=== PATIENT | male | born 1960 | race Caucasian/White ===

== ENCOUNTER 2017-03-21 13:43 | Emergency (ER) | payer SELFPAY ==
[~2017-03-21] VITALS: Ht 177.8 cm; Wt 81.6 kg
[2017-03-21 13:43] VITALS: BP 123/89
[2017-03-21] MEDS ORDERED: CEPHALEXIN MONOHYDRATE 500 MG CAPSULE PO STA (14:17)
[2017-03-21] MEDS ORDERED: CEFTRIAXONE 1 G VIAL IM STA (14:17)
[2017-03-21] MEDS ORDERED: HYDROCODONE/APAP 5/325MG 1 EACH TABLET PO STA (14:17)
[2017-03-21] MEDS ORDERED: SULFAMETH/TRIMETH 800/160 MG 1 UDTAB TABLET PO STA (14:17)
[2017-03-21] MEDS ORDERED: CEPHALEXIN MONOHYDRATE 500 MG CAPSULE PO ONE (15:01)
[2017-03-21] MEDS ORDERED: SULFAMETH/TRIMETH 800/160 MG 1 UDTAB TABLET PO ONE (15:01)
[2017-03-21] MEDS ORDERED: HYDROCODONE/APAP 5/325MG 1 EACH TABLET ONE (15:01)
== END 2017-03-21 15:15 | disposition home or self-care (01) ==
LOC: ER 13:45
DX: L03.115 Cellulitis of right lower limb (principal)
CPT/HCPCS: 99284; A4606; Z7610

== ENCOUNTER 2017-03-23 18:18 | Inpatient (IN) | payer MEDICAID ==
[~2017-03-23] VITALS: Ht 167.6 cm; Wt 73.5 kg
--- NOTE | 2017-03-23 18:40 | NUR ---
AAOX3, CAME TO ER C/O UNHEALING WOUND TO R KNEE, R FOOT SWELLING, AND REDNESS ON R INNER THIGH, HOT TO TOUCH. RR IS EVEN AND UNLABORED WITH NAD NOTED. SKIN IS WARM AND DRY. DR VENTURA AND MAC PA AT BS FOR EVAL.
[2017-03-23] MEDS ORDERED: VANCOMYCIN 1 GM in IV D5W 250 ML IV ONE (19:00)
[2017-03-23] MEDS ORDERED: LIDOCAINE 1% INJ 50 ML MDV IJ ONE (19:00)
[2017-03-23] MEDS ORDERED: PIPERACILLIN /TAZOBACTAM 3.375 G in IV D5W 50 ML IV ONE (19:00)
[2017-03-23 19:01] LABS: BASOPHILS # (AUTO) 0.3 /CMM (0.0-0.2); BASOPHILS % (AUTO) 3.3 % (0.0-2.0); EOSINOPHILS # (AUTO) 0.2 /CMM (0.0-0.7); EOSINOPHILS % (AUTO) 3.1 % (0.0-6.0); HEMATOCRIT 44 % (39-51); HEMOGLOBIN 14.5 g/dL (13.5-17.5); LYMPHOCYTES # (AUTO) 1.8 /CMM (0.8-4.8); LYMPHOCYTES % (AUTO) 22.7 % (20.0-44.0); MEAN CORPUSCULAR HEMOGLOBIN 31 PG (26.0-33.0); MEAN CORPUSCULAR HGB CONC 33 g/dl (31.0-36.0); MEAN CORPUSCULAR VOLUME 96 fL (80-96); MONOCYTES # (AUTO) 1.2 /CMM (0.1-1.30); MONOCYTES % (AUTO) 15.2 % (2.0-12.0); NEUTROPHILS # (AUTO) 4.5 /CMM (1.8-8.9); NEUTROPHILS % (AUTO) 55.7 % (43.0-81.0); PLATELET COUNT (AUTO) 357 /CMM (150-450); RDW COEFFICIENT OF VARIATION 12.5 (11.5-15.0); RED BLOOD CELL COUNT(AUTO) 4.61 MIL/uL (4.5-6.0)
[2017-03-23 19:11] LABS: CALCIUM, SERUM 8.6 mg/dL (8.5-10.1); CARBON DIOXIDE 28 mmol/L (21-32); CHLORIDE 104 mmol/L (98-107); GLUCOSE 113 mg/dL (74-106); POTASSIUM 3.7 mmol/L (3.5-5.1); SODIUM SERUM 138 mmol/L (136-145); UREA NITROGEN, BLOOD 18 mg/dL (7-18)
[2017-03-23 19:15] LABS: INR 0.96 (0.87-1.13)
[2017-03-23 19:17] LABS: ALANINE AMINOTRANSFERASE 28 U/L (12-78); ALBUMIN 2.9 g/dL (3.4-5.0); ALKALINE PHOSPHATASE 75 U/L (46-116); ASPARTATE AMINOTRANSFERASE 25 U/L (15-37); BILIRUBIN,TOTAL 0.1 mg/dL (0.2-1.0); TOTAL PROTEIN, SERUM 7.1 g/dL (6.4-8.2)
[2017-03-23 19:19] LABS: TROPONIN I < 0.017 ng/mL (0.00-0.056)
--- NOTE | 2017-03-23 19:20 | NUR ---
REPORT GIVEN TO RENE FAYE FOR KIYA.
--- NOTE | 2017-03-23 19:58 | NUR ---
VITAL SIGNS UPDATED.
[2017-03-23] MEDS ORDERED: TDAP [DIPH/PERTUSSIS/TET] 0.5 ML VIAL IM ONE ×2 (20:00→20:01)
--- NOTE | 2017-03-23 20:20 | NUR ---
patient transported to ms bed without incident
--- NOTE | 2017-03-23 20:30 | NUR ---
MS RN NOTES MESERET VINCENT. AT BEDSIDE
[2017-03-23 20:35] VITALS: BP 115/72
[2017-03-23 21:00] LABS: EOSINOPHILS % (MANUAL) 4 % (0-4); LYMPHOCYTES % (MANUAL) 28 % (16-48); MONOCYTES % (MANUAL) 10 % (0-11.0); NEUTROPHILS % (MANUAL) 58 (42-76)
[2017-03-23] MEDS ORDERED: ONDANSETRON HCL/PF 4 MG/2 ML VIAL IVP PRN (21:00)
[2017-03-23] MEDS ORDERED: Z GUARD REMEDY 2 OZ OINT TP PRN (21:00)
[2017-03-23] MEDS ORDERED: ACETAMINOPHEN 325 MG TABLET PO PRN (21:00)
[2017-03-23] MEDS ORDERED: MAG HYDROX/AL HYDROX/SIMETH 30 ML UDC PO PRN (21:00)
[2017-03-23] MEDS ORDERED: HYDROCODONE/APAP 5/325MG 1 EACH TABLET PO PRN (21:00)
[2017-03-23] MEDS ORDERED: MAGNESIUM HYDROXIDE 30 ML UDC PO PRN (21:00)
--- NOTE | 2017-03-23 21:00 | NUR ---
MS RN ADMITTING OPENING NOTES RECEIVE PT VIA W/C FROM E.R AT 2021, A/OX 3, HEAD TO TOE ASSESSMENT IS DONE, PT SMELLS ALCOHOL WHEN HE TALKS, PER PT HE DRINK A LITTLE ALCOHOL. NO S/S OF RESPIRATORY DISTRESS OR SOB. SAFETY MEASURES IN PLACE, ON LOW BED TO ENSURE SAFETY. CALL LIGHT WITHIN REACH. WILL CONTINUE TO MONITOR
[2017-03-23] MEDS ORDERED: PIPERACILLIN /TAZOBACTAM 3.375 G VIAL IV ONE (23:52)
[2017-03-24] MEDS: IV NS 0.9% 1,000 ML IV PRN ×2 (00:02→23:36)
[2017-03-24] MEDS: PIPERACILLIN /TAZOBACTAM 3.375 G in IV D5W 50 ML IV SCH ×5 (00:02→23:35)
[2017-03-24] MEDS ORDERED: VANCOMYCIN 1 GM VIAL ONE (04:18)
[2017-03-24] MEDS ORDERED: PIPERACILLIN /TAZOBACTAM 3.375 G VIAL IV ONE (04:18)
[2017-03-24] MEDS: VANCOMYCIN 1 GM in IV D5W 250 ML IV SCH ×2 (05:04→17:40)
--- NOTE | 2017-03-24 06:43 | NUR ---
MS RN CLOSING NOTES PT ASLEEP AND EASILY AWAKEN, A/O X3, HOB, TOLERATING ROOM AIR 100%. NS RUNNING AT 75CC/HR, ON ATB WITH NO A/R NOTED, IV SITE NO S/S OF INFILTRATED PATENT AND FLUSHED, NO S/S OF RESPIRATORY DISTRESS IN STABLE CONDITION. NO SOB, SKIN WARM AND DRY TO TOUCH, AFEBRILE, NEEDS ATTENDED AND ANTICIPATED. NURSING CARE RENDERED. KEPT CLEAN AND DRY AND COMFORTABLE, GOOD SKIN CARE PROVIDED. FREQUENT VISUAL CHECK DONE FOR SAFETY EVERY 2 HOURS. SAFE HAZARD FREE ENVIRONMENT PROVIDED. CALL LIGHT WITHIN EASY TO REACH, ON LOW BED AT ALL TIMES TO ENSURE SAFETY, WILL ENDORSE TO THE NEXT SHIFT CONTINUE PLAN OF CARE.
--- NOTE | 2017-03-24 07:40 | NUR ---
RN OPEN NOTES RECEIVED REPORT FROM LIBRARY PAGE NURSE. WILL CONTINUE TO ASSESS AND MONITOR PATIENT THROUGH OUT MY SHIFT
[2017-03-24 07:50] LABS: BASOPHILS % (AUTO) 0.5 % (0.0-2.0); EOSINOPHILS # (AUTO) 0.3 /CMM (0.0-0.7); EOSINOPHILS % (AUTO) 4.2 % (0.0-6.0); HEMATOCRIT 45 % (39-51); HEMOGLOBIN 14.9 g/dL (13.5-17.5); LYMPHOCYTES # (AUTO) 1.9 /CMM (0.8-4.8); MEAN CORPUSCULAR HEMOGLOBIN 32 PG (26.0-33.0); MEAN CORPUSCULAR HGB CONC 33 g/dl (31.0-36.0); MEAN CORPUSCULAR VOLUME 96 fL (80-96); MONOCYTES # (AUTO) 0.8 /CMM (0.1-1.30); MONOCYTES % (AUTO) 12.2 % (2.0-12.0); NEUTROPHILS # (AUTO) 3.8 /CMM (1.8-8.9); NEUTROPHILS % (AUTO) 55.1 % (43.0-81.0); PLATELET COUNT (AUTO) 351 /CMM (150-450); RDW COEFFICIENT OF VARIATION 13.3 (11.5-15.0); RED BLOOD CELL COUNT(AUTO) 4.67 MIL/uL (4.5-6.0); WHITE BLOOD COUNT (AUTO) 6.8 K/uL (4.3-11.0)
[2017-03-24 08:00] VITALS: BP 128/76
[2017-03-24 08:03] LABS: CALCIUM, SERUM 8.6 mg/dL (8.5-10.1); CREATININE 1.1 mg/dL (0.6-1.3); MAGNESIUM 1.8 mg/dL (1.8-2.4); PHOSPHORUS 2.6 mg/dL (2.5-4.9)
[2017-03-24 08:12] LABS: THYROID STIMULATING HORMONE 1.294 uIU/mL (0.358-3.74)
[2017-03-24] MEDS ORDERED: SULF1TAB48 PO (08:42)
[2017-03-24] MEDS ORDERED: CEPH-570 PO (08:42)
[2017-03-24] MEDS ORDERED: FEE PK DOSING 1 MIN EA MC ONE (10:42)
--- NOTE | 2017-03-24 13:07 | NUR ---
WOUND CARE CONSULT: PT PRESENTS WITH PURULENT DRAINAGE FROM RT KNEE ABSCESS WITH REDNESS TO SURROUNDING AREAS. RECOMMEND SURGICAL CONSULT. RECOMMENDATIONS MADE FOR WOUND CARE. DISCUSSED WITH [facility] STAFF. WILL SEE PRN. BELTRAN IN AGREEMENT WITH PLAN OF CARE. Addendum: 03/24/17 at 1309 by SHAYNE DIAZ WNDNU Amended: Links added.
--- NOTE | 2017-03-24 15:32 | NUR ---
Social service consult requested by HAIM Khan for possible homelessness. Pt. is a 56 year old male who was admitted to [facility] for cellulitis. PAGE met with pt. bedside. Pt. was cooperative with SW during the assessment, however not very forthcoming with information that was asked of him. SW inquired with pt. if he is homeless and pt. responded " yeah, you could say that". Pt. states he is currently living at a friend's but would not elaborate any further. Pt. is currently unemployed and stated he is waiting to receive his social security disability income. Pt. denies drinking alcohol and using drugs. Pt. occasionally smokes cigarettes. SW has no source of income. PAGE encouraged pt. to apply for general relief and food stamps. SW to offer pt. list of DPSS offices in [facility]. PAGE offered pt. homeless [facility] placement and resources, however pt. declined. PAGE gave HAIM Cedeño document with List of DPSS offices to give to pt's RENE Fierro to give to the patient. No other social service needs are requested at this time. PAGE is available if needed.
--- NOTE | 2017-03-24 15:54 | NUR ---
Per patient he is currently unemployed and homeless. He was seen by social services coordinator and stated that he is currently living at a friend's home but would not elaborate any further. Patient stated he is waiting to receive his social security disability income.PAGE encouraged pt. to apply for general relief and food stamps. SW to offer pt. list of DPSS offices in [facility]. PAGE offered patient homeless correction placement and resources, however patient declined. He is ambulatory and independent with adl's.He will go back to stay with his friend when discharge. Addendum: 03/24/17 at 1554 by MAGED GUTIERREZ RN Amended: Links added.
[2017-03-24 16:00] VITALS: BP 123/82
[2017-03-24] MEDS ORDERED: FLU VACC QS 2017-18(36MOS+)/PF 0.5 ML DISP.SYRIN IM ONE (16:00)
[2017-03-24] MEDS: LACTOBACILLUS RHAMNOSUS GG 1 EACH CAP.SPRINK PO SCH (17:02)
[2017-03-24] MEDS: HYDROCODONE/APAP 10/325MG 1 EA TABLET PO PRN (18:46)
--- NOTE | 2017-03-24 19:05 | NUR ---
RN CLOSING NOTES: PATIENT IN BED, ALERT AND ORIENTED TO NAME, PLACE AND TIME. BREATHING EVEN AND UNLABORED. NO SIGNS AND SYMPTOMS OF DISTRESS. RIGHT KNEE PAIN 8/10, NORCO ADMINISTERED AT 1840. IV SITE IS INTACT AND PATENT. ALL NURSING CARE PROVIDED FOR COMFORT AND SAFETY. BED IN LOWEST AND LOCKED POSITION, 2 SIDE-RAILS ARE UP, CALL LIGHT WITHIN REACH. PENDING DOPPLER LOWER EXTREMITY TO R/U DVT. WILL ENDORSE TO NITROCELLULOSE MAKER NURSE RN FOR KIYA.
--- NOTE | 2017-03-24 19:30 | NUR ---
MS RN NOTE RECEIVED PATIENT FROM DAY SHIFT, PATIENT IS ALERT AND ORIENTEDX3, RESTING IN BED COMFORTABLY, NO S/S OF RESPIRATORY DISTRESS AND NO PAIN REPORTED. IV ON LEFT AND RIGHT HAND ARE PATENT AND INTACT, FLUID IS RUNNING. SRX2, BED IN LOW POSITION, CALL LIGHT WITHIN REACH, WILL CONTINUE TO MONITOR PATIENT.
[2017-03-24 20:00] VITALS: BP 123/79
[2017-03-25] MEDS: HYDROCODONE/APAP 10/325MG 1 EA TABLET PO PRN ×2 (02:21→20:10)
--- NOTE | 2017-03-25 02:23 | NUR ---
MS RN NOTE PATIENT COMPLAINS OF RIGHT KNEE PAIN, 01/26. NORCO 10-325MG PO GIVEN. WILL MONITOR EFFECTIVENESS.
[2017-03-25] MEDS: PIPERACILLIN /TAZOBACTAM 3.375 G in IV D5W 50 ML IV SCH ×4 (05:26→23:45)
--- NOTE | 2017-03-25 07:00 | NUR ---
MS RN NOTE PATIENT IS RESTING IN BED COMFORTABLY, NO S/S OF RESPIRATORY DISTRESS OR PAIN AT THIS TIME. DRESSING CHANGE PERFORMED ON RIGHT KNEE PER PATIENT'S REQUEST. IV ON BOTH HANDS ARE PATENT AND INTACT. WILL ENDORSE TO DAY SHIFT NURSE FOR KIYA.
[2017-03-25 07:15] LABS: CALCIUM, SERUM 8.8 mg/dL (8.5-10.1); CREATININE 0.9 mg/dL (0.6-1.3); POTASSIUM 4.3 mmol/L (3.5-5.1)
--- NOTE | 2017-03-25 07:19 | NUR ---
MS RN NOTE PATIENT'S 0500 VANCO TROUGH RESULT IS STILL PENDING ULTIL NOW, UNABLE TO ADMINISTER 0600 VANCO 1GM IVP. WILL ENDORSE TO DAY SHIFT NURSE TO F/U.
--- NOTE | 2017-03-25 07:48 | NUR ---
MS RN NOTE RECEIVED PATIENT RESTING IN BED COMFORTABLY WITH NO APPARENT DISTRESS, NO S/S OF PAIN OR DISCOMFORT. BREATHING EVEN AND UNLABORED. DRESSING TO RIGHT KNEE CHANGED THIS MORNING. IV MOHSEN RIGHT AND LEFT HAND PATENT AND INTACT INFUSING NS AT 75CC/HR. SAFETY MEASURES RENDERED CALL LIGHT PLACED WITHIN REACH. WILL CONTINUE TO MONITOR
[2017-03-25] MEDS: VANCOMYCIN 1 GM in IV D5W 250 ML IV SCH ×3 (07:56→21:28)
[2017-03-25 08:00] VITALS: BP 137/85
[2017-03-25] MEDS: LACTOBACILLUS RHAMNOSUS GG 1 EACH CAP.SPRINK PO SCH ×2 (10:03→16:53)
--- NOTE | 2017-03-25 15:14 | NUR ---
MS/RN NOTES WOUND CARE OF RIGHT KNEE PERFORMED PER MD ORDERS
[2017-03-25 16:00] VITALS: BP 145/83
[2017-03-25] MEDS: IV NS 0.9% 1,000 ML IV PRN (18:29)
--- NOTE | 2017-03-25 18:59 | NUR ---
ms/rn notes patient resting in bed comfortably, in no apparent distress, all due medications given, all needs met and attended. patient kept clean and comfortable. wound care done as ordered. iv fluids infusing gently with empiric antibiotics (vanco, zosyn). patient eating well consuming 100perecent of meals. Ambulatory with steady gait safety measures rendered, call light within easy reach. will endorse can to restaurant shift leader for leora
--- NOTE | 2017-03-25 19:36 | NUR ---
RN NOTES RECEIVED PATIENT IN BED, ALERT AND ORIENTED X4, CALM, NO SOB, NO RESPIRATORY DISTRESS, TOLERATING ROOM AIR, TALKING ON THE PHONE, DENIES ANY PAIN AT THIS TIME, LUNG SOUNDS ARE CLEAR, ABDOMEN SOFT AND NON-TENDER, ACTIVE BOWEL SOUNDS, LEFT HAND PERIPHERAL LINE IS PATENT AND INFUSING WELL WITH NS AT 75 CC/HR, NEEDS ATTENDED CALL LIGHT WITHIN REACH.
[2017-03-25 20:00] VITALS: BP 145/86
[2017-03-26] MEDS: PIPERACILLIN /TAZOBACTAM 3.375 G in IV D5W 50 ML IV SCH ×3 (05:11→17:35)
[2017-03-26] MEDS: VANCOMYCIN 1 GM in IV D5W 250 ML IV SCH ×3 (05:58→22:29)
--- NOTE | 2017-03-26 06:42 | NUR ---
RN NOTES PATIENT IS RESTING COMFORTABLY, EASILY AROUSEABLE, NO SOB, NO RESPIRATORY DISTRESS, NO ADVERSE CHANGE OF CONDITION DURING SHIFT, COMPLIANT WITH MEDICATION. NEEDS ATTENDED, CALL LIGHT WITHIN REACH.
[2017-03-26 07:08] LABS: CALCIUM, SERUM 8.9 mg/dL (8.5-10.1); CREATININE 0.9 mg/dL (0.6-1.3)
--- NOTE | 2017-03-26 07:42 | NUR ---
RECEIVED PT A/OX4. ON ROOM AIR SATING AT 97%. NO DISTRESS NOTED. NO PAIN NOTED. AMBULATES WITH OUT ASSISTANCE. R KNEE ABSCESS NOTED. DRESSING INTACT. ON REGULAR DIET. R HAND #22 RUNNING NS AT 75ML/HR. L HAND #22 SL. SITE CLEAR AND PATENT. RESTING COMFORTABLY IN BED. CALL LIGHT WITHIN REACH.
[2017-03-26 08:00] VITALS: BP 136/96
[2017-03-26] MEDS: LACTOBACILLUS RHAMNOSUS GG 1 EACH CAP.SPRINK PO SCH ×2 (08:27→17:35)
[2017-03-26 09:00] VITALS: BP 136/96
--- NOTE | 2017-03-26 10:00 | NUR ---
WOUND CARE DONE ORDERED BY MD ON RIGHT KNEE. CLEANSED WITH NS AND COVERED WITH KERLIX.
[2017-03-26] MEDS: IV NS 0.9% 1,000 ML IV PRN (13:02)
[2017-03-26 16:00] VITALS: BP 126/89
--- NOTE | 2017-03-26 18:44 | NUR ---
IV ON RIGHT HAND #22 LEAKING. D/C IV AND CONTINUED IV INFUSION OF NS AT 75ML/HR ON L HAND. R HAND IV SITE CLEAR. NO REDNESS. NO BLEEDING. NO INFILTRATION NOTED.
--- NOTE | 2017-03-26 18:45 | NUR ---
MS RN: CLOSING NOTE PT A/PX4. AMBULATES WITH OUT ASSISTANCE. TOOK ALL MEDICATIONS ON TIME. NO ADVERSE REACTIONS NOTED. NO PAIN NOTED. NO SOB. NO DISTRESS NOTED. ON REGULAR DIET. R KNEE ABBESS WOUND SITE CLEANED AND DRESSING INTACT. D/C RIGHT HAND IV DUR TO LEAKING. SITE CLEAR, NO REDNESS, NO BLEEDING NOTED. CONTINUED IV NS AT 75ML ON L HAND. SITE CLEAR AND PATENT. NO N/V NOTED. RESTING COMFORTABLY IN BED. CALL LIGHT WITHIN REACH.
--- NOTE | 2017-03-26 19:25 | NUR ---
MS/RN NOTES RECEIVED PT. LYING IN BED. AWAKE, ALERT AND ORIENTED X3. BREATHING EVEN AND UNLABORED ON ROOM AIR. NO SOB, RESPIRATORY DISTRESS OR COMPLAINTS OF PAIN NOTED AT THIS TIME. PT. WITH LEFT HAND 22 GAUGE PERIPHERAL IV PRESENT, PATENT AND INTACT ADMINISTERING TO PT. NS @ 75 ML/HR. BED LOCKED AND IN LOWEST POSITION, SIDE RAILS UP X2, CALL LIGHT WITHIN REACH, WILL CONTINUE TO MONITOR.
[2017-03-26 20:29] VITALS: BP 142/85
--- NOTE | 2017-03-26 22:50 | NUR ---
MS/RN NOTES PT. LEFT HAND IV SITE INFILTRATED. DISCONNECTED IV FLUIDS. REMOVED LEFT HAND IV ACCESS AND ELEVATED PT. LEFT HAND ON PILLOW. PT. REFUSING IV INSERTION AT THIS TIME. EDUCATED PT. ON IMPORTANCE OF RECEIVING IV ANTIBIOTICS ORDERED. PT. VERBALIZED UNDERSTANDING AND CONTINUES TO REFUSE STATING "IM GOING HOME TOMORROW, ILL TAKE MY CHANCES NOT GETTING THEM". WILL ATTEMPT AGAIN AT A LATER TIME. WILL CONTINUE TO MONITOR.
--- NOTE | 2017-03-27 00:20 | NUR ---
MS/RN NOTES ATTEMPTED TO INSERT NEW IV ACCESS. PT. CONTINUES TO REFUSE IV INSERTION AND IV ANTIBIOTICS. WILL CONTINUE TO MONITOR.
[2017-03-27] MEDS: PIPERACILLIN /TAZOBACTAM 3.375 G in IV D5W 50 ML IV SCH ×3 (06:00)
[2017-03-27] MEDS: VANCOMYCIN 1 GM in IV D5W 250 ML IV SCH (06:00)
--- NOTE | 2017-03-27 06:36 | NUR ---
MS/RN NOTES PT. IS LYING IN BED RESTING. BREATHING EVEN AND UNLABORED ON ROOM AIR. NO SOB, RESPIRATORY DISTRESS OR COMPLAINTS OF PAIN NOTED AT THIS TIME. PT. WITH NO IV ACCESS AT THIS TIME. PT. CONTINUES TO REFUSE NEW IV SITE INSERTION. EDUCATED PT. ON IMPORTANCE OF IV ACCESS TO ADMINISTER IV ANTIBIOTICS. PT. VERBALIZED UNDERSTANDING AND CONTINUES TO REFUSE. ALL PT. NEEDS MET. BED LOCKED AND IN LOWEST POSITION, SIDE RAILS UP X2, CALL LIGHT WITHIN REACH, WILL ENDORSE TO DAYSHIFT NURSE FOR CONTINUITY OF CARE.
--- NOTE | 2017-03-27 07:31 | NUR ---
MS RN: INITIAL NOTE RECEIVED PT A/OX4. R LEG EDEMA +2. ABLE TO AMBULATE WITH OUT ASSISTANCE. R KNEE ABSCESS NOTED. DRESSING INTACT. ON ROOM AIR SATING AT 96%. NO DISTRESS NOTED. NO PAIN NOTED. NO SOB NOTED. PT REFUSING TO RESTART A NEW IV SINCE THE INTERNET RESEARCHER. EXPLAINED ALL THE RISKS AND BENEFITS. EDUCATED ON THE IMPORTANCE OF CONTINUING IV ATB BEFORE D/C. PT CONTINUED TO REFUSE. RESTING COMFORTABLY IN BED. CALL LIGHT WITHIN REACH.
[2017-03-27 07:33] LABS: CALCIUM, SERUM 9.4 mg/dL (8.5-10.1); CREATININE 0.9 mg/dL (0.6-1.3); POTASSIUM 4.1 mmol/L (3.5-5.1)
[2017-03-27 08:00] VITALS: BP 157/98
[2017-03-27] MEDS: LACTOBACILLUS RHAMNOSUS GG 1 EACH CAP.SPRINK PO SCH (08:15)
--- NOTE | 2017-03-27 09:00 | NUR ---
MS RN: DISCHARGE NOTE PT D/C HOME PER ORDER. TOOK ALL MORNING MEDICATIONS ON TIME. NO ADVERSE REACTIONS NOTED. NO PAIN NOTED. NO DISTRESS NOTED. VS STABLE. BP 157/98, PULSE 77, RR 18, TEMP 98.1, O2 97%. NO IV SITE DUE TO REMOVAL ON VALVE STEAMER DUE AND REFUSAL TO RE START A NEW ONE. EXPLAINED THE RISKS AND BENEFITS IN BEGINNING OF SHIFT ABOUT RE INSERTING IV. PT REFUSED. ALL DISCHARGE INFORMATION PROVIDED TO PT. NEW PRESCRIPTION OF KEFLEX AND BACTERIUM FOR X14 DAYS EXPLAINED. PRESCRIPTION GIVEN TO PT BEFORE D/C. ALL DISCHARGE PAPERWORK SIGNED BY PT. ALL VALUABLE ACCOUNTED FOR. R KNEE ABSCESS CLEANED AND DRESSING CHANGED BEFORE D/C. LEFT VIA PRIVATE CAR DRIVING SELF.
== END 2017-03-27 09:00 | disposition home or self-care (01) | DRG 383 ==
LOC: ER 18:20 → MED 20:52
PROVIDERS: ADMIT Nurse Practitioner Acute Care; ATTEND Nurse Practitioner Acute Care
PROC: 0H9KXZZ Drainage of Right Lower Leg Skin, External Approach (ICD-10-PCS; principal; 2017-03-23)
DX: L03.115 Cellulitis of right lower limb (principal); E44.0 Moderate protein-calorie malnutrition; I10 Essential (primary) hypertension; L02.415 Cutaneous abscess of right lower limb; F17.200 Nicotine dependence, unspecified, uncomplicated; E88.09 Other disorders of plasma-protein metabolism, not elsewhere classified; Z68.26 Body mass index [BMI] 26.0-26.9, adult
CPT/HCPCS: 36415; 80048-TC; 80061-TC; 80076-TC; 80202-TC; 80305; 83605-TC; 83735-TC; 84100-TC; 84443-TC; 84484-TC; 85025-TC; 85730-TC; 87040-TC; 87081-TC; 90715; 93971-TC; A4606; A6253; A6402; A6403; G0480; J2543; J3370; J7030; J7060; Q2036; Z7610

== ENCOUNTER 2019-01-31 17:36 | Emergency (ER) | payer OTHER, MEDICAID ==
[~2019-01-31] VITALS: Ht 182.9 cm; Wt 89.4 kg
[~2019-01-31 17:36] MED LIST: CEPH-570 PO; SULF1TAB48 PO
--- NOTE | 2019-01-31 17:47 | NUR ---
PT BIBA RA 88 IN CUSTODY C/O SEIZURE EPISODE IN PENITENTIARY, PT IS AAOX3, NOT IN RESPIRAOTRY DISTRESS, HOOKED TO MONITOR, KEPT RESTED AND COMFORTABLE, WILL CONTINUE TO MONITOR.
--- NOTE | 2019-01-31 17:52 | NUR ---
IV LINE ESTABLISHED, BLOOD DRAWNED AND SENT TO LAB.
[2019-01-31] MEDS ORDERED: LORAZEPAM 1 MG TABLET ONE (18:22)
[2019-01-31] MEDS ORDERED: LORAZEPAM 1 MG TABLET PO ONE (18:30)
--- NOTE | 2019-01-31 18:34 | NUR ---
IV removed. Catheter intact and site benign. Pressure and 4x4 applied to site. No bleeding noted. Patient discharged to home in stable condition. Written and verbal after care instructions given. Patient verbalizes understanding of instruction.
[2019-01-31 18:35] VITALS: BP 134/88
== END 2019-01-31 18:36 | disposition home or self-care (01) ==
LOC: ER 17:36
DX: F13.239 Sedative, hypnotic or anxiolytic dependence with withdrawal, unspecified (principal); R56.9 Unspecified convulsions; F41.9 Anxiety disorder, unspecified; I10 Essential (primary) hypertension; Z60.2 Problems related to living alone